=== PATIENT | female | born 1965 | race Caucasian/White ===

== ENCOUNTER → 2016-06-14 | Outpatient (CLI) | payer OTHER ==
[~2016-06-14] MED LIST: ASPI325T4 PO; ATOR-24 PO; CRAN1CAP15 PO; DIGO0.1267 PO; FISHOIL PO; METF1000 PO; METO-596 PO; MULTTAB58 PO; OXYC-57 PO; TRAMTAB5 PO
[2016-06-14 12:36] LABS: ALT/SGPT 72 U/L (12-78); AST/SGOT 34 U/L (15-37); BLOOD UREA NITROGEN 16 mg/dl (7-18); BUN/CREATININE RATIO 19.5 (10-20); CALCIUM 8.8 mg/dl (8.5-10.1); CARBON DIOXIDE 25 mmol/L (21-32); CHLORIDE 107 mmol/L (98-107); CREATININE 0.84 mg/dl (0.60-1.20); GLUCOSE 125 mg/dl (70-99); POTASSIUM 3.9 mmol/L (3.5-5.1); SODIUM 142 mmol/L (136-145)
[2016-06-14 12:38] LABS: ALB/GLOB RATIO 1.2 (0.9-2); ALKALINE PHOSPHATASE 79 U/L (45-117); CHOLESTEROL 152 mg/dl (0-200); CHOLESTEROL/HDL RATIO 4.2; HDL CHOLESTEROL 36 mg/dl; LDL CHOLESTEROL CALCULATED 72 mg/dl; TRIGLYCERIDES 222 mg/dl (0-150); VERY LOW DENSITY LIPOPROT CALC 44 mg/dl
[2016-06-14 12:42] LABS: ESTIMATED AVERAGE GLUCOSE 146 mg/dl; HA1C FLAG Normal (Normal)
== END | disposition home or self-care (01) ==
LOC: C.LABPVFM 08:33
PROVIDERS: ATTEND Family Medicine
DX: E78.5 Hyperlipidemia, unspecified (principal); E11.9 Type 2 diabetes mellitus without complications; I10 Essential (primary) hypertension; R74.8 Abnormal levels of other serum enzymes; I25.10 Atherosclerotic heart disease of native coronary artery without angina pectoris

== ENCOUNTER → 2016-09-10 | Outpatient (CLI) | payer OTHER | END | disposition home or self-care (01) | LOC: C.LABPVFM 11:47 | PROVIDERS: ATTEND Nurse Practitioner | DX: N39.0 Urinary tract infection, site not specified (principal) ==

== ENCOUNTER → 2016-12-17 | Outpatient (CLI) | payer OTHER ==
[2016-12-17 12:56] LABS: ESTIMATED AVERAGE GLUCOSE 140 mg/dl; HA1C FLAG Normal (Normal)
[2016-12-17 13:10] LABS: ALT/SGPT 93 U/L (12-78); AST/SGOT 46 U/L (15-37); BLOOD UREA NITROGEN 20 mg/dl (7-18); BUN/CREATININE RATIO 22.4 (10-20); CALCIUM 9.3 mg/dl (8.5-10.1); CARBON DIOXIDE 26 mmol/L (21-32); CHLORIDE 107 mmol/L (98-107); CREATININE 0.87 mg/dl (0.60-1.20); GLUCOSE 95 mg/dl (70-99); SODIUM 141 mmol/L (136-145)
[2016-12-17 13:13] LABS: ALB/GLOB RATIO 1.1 (0.9-2); ALKALINE PHOSPHATASE 80 U/L (45-117); CHOLESTEROL 143 mg/dl (0-200); CHOLESTEROL/HDL RATIO 3.7; HDL CHOLESTEROL 39 mg/dl; LDL CHOLESTEROL CALCULATED 78 mg/dl; TRIGLYCERIDES 132 mg/dl (0-150); VERY LOW DENSITY LIPOPROT CALC 26 mg/dl
[2016-12-17 13:23] LABS: RATIO 81.7 mcg/mg (0-30.0)
== END | disposition home or self-care (01) ==
LOC: C.LABPVFM 07:32
PROVIDERS: ATTEND Family Medicine
DX: I63.9 Cerebral infarction, unspecified (principal); E11.9 Type 2 diabetes mellitus without complications; R74.8 Abnormal levels of other serum enzymes; E78.5 Hyperlipidemia, unspecified; I10 Essential (primary) hypertension; I25.10 Atherosclerotic heart disease of native coronary artery without angina pectoris

== ENCOUNTER → 2017-01-10 | Outpatient (CLI) | payer OTHER ==
--- NOTE | 2017-01-10 09:06 | DIAGNOSTIC IMAGING REPORT ---
ABDOMINAL ULTRASOUND COMPLETE HISTORY: ELEVATED LIVER ENZYMES. COMPARISON: Abdominal ultrasound 01/12/2014. FINDINGS: Pancreas: The pancreatic tail is obscured by overlying bowel gas. The remaining portions of the pancreas are within normal limits. Liver: The liver is echogenic consistent with fatty change. Gallbladder: The gallbladder is surgically absent. CBD: 5 mm. Kidneys: The right kidney measures 11.7 cm and the left kidney measures 10.5 cm. There is moderate left hydroureteronephrosis. The dilated ureter measures up to 9 mm in diameter. The mid to distal left ureter was obscured by overlying bowel gas. Normal bladder. Only the right ureteral jet was identified. Spleen: Normal in size. Aorta: Normal in caliber. IVC: Patent. IMPRESSION: 1. Moderate left hydroureteronephrosis. The left ureteral jet was not identified. The site of obstruction is not identified due to overlying bowel gas. However, this favors an obstructing stone. CT can be performed for further evaluation. 2. Normal right kidney. 3. Hepatic steatosis. 4. Cholecystectomy. Electronically signed by: Perez Garcia M.D. 01/10/2017 9:05 AM Dictated Date/Time: 01/10/2017 9:01 AM
== END | disposition home or self-care (01) ==
LOC: C.ULTR 08:11
PROVIDERS: ATTEND Family Medicine
DX: R74.8 Abnormal levels of other serum enzymes (principal); N13.30 Unspecified hydronephrosis

== ENCOUNTER → 2017-02-07 | Outpatient (CLI) | payer OTHER | END | disposition home or self-care (01) | LOC: C.MAMM 08:15 | PROVIDERS: ATTEND Family Medicine | DX: Z13.820 Encounter for screening for osteoporosis (principal); M85.88 Other specified disorders of bone density and structure, other site; M85.851 Other specified disorders of bone density and structure, right thigh; M85.852 Other specified disorders of bone density and structure, left thigh ==

== ENCOUNTER → 2017-04-18 | Outpatient (CLI) | payer OTHER ==
--- NOTE | 2017-04-18 14:35 | MAMMOGRAPHY REPORT ---
BILATERAL DIGITAL SCREENING MAMMOGRAM TOMOSYNTHESIS WITH CAD: 04/18/2017 CLINICAL HISTORY: Routine screening. TECHNIQUE: Breast tomosynthesis in addition to standard 2D mammography was performed. Current study was also evaluated with a Computer Aided Detection (CAD) system. COMPARISON: Comparison is made to exams dated: 04/05/2016 mammogram, 03/29/2015 mammogram, 4 mammogram, 03/03/2013 mammogram, 01/10/2012 mammogram, and 11/02/2010 mammogram - [facility]. BREAST COMPOSITION: The tissue of both breasts is heterogeneously dense, which may obscure small mas ses. FINDINGS: No suspicious masses, calcifications, or areas of architectural distortion are noted in ei ther breast. There has been no significant interval change compared to prior exams. Scattered bilate ral benign-appearing calcifications are not significantly changed. IMPRESSION: ACR BI-RADS CATEGORY 2: BENIGN There is no mammographic evidence of malignancy. A 1 year screening mammogram is recommended. The pa tient will receive written notification of the results. Approximately 10% of breast cancers are not detected with mammography. A negative mammographic report should not delay biopsy if a clinically suggestive mass is present. Tori Noble M.D. /:04/18/2017 14:20:20 [employer]: David TOVAR(Radha)(M), [facility] letter sent: Normal 1/2 BI-RADS Code: ACR BI-RADS Category 2: Benign
== END | disposition home or self-care (01) ==
LOC: C.MAMM 08:30
PROVIDERS: ATTEND Family Medicine
DX: Z12.31 Encounter for screening mammogram for malignant neoplasm of breast (principal); R74.8 Abnormal levels of other serum enzymes

== ENCOUNTER → 2017-06-24 | Outpatient (CLI) | payer OTHER ==
[2017-06-24 13:11] LABS: HEMOGLOBIN A1C 6.2 % (4.5-5.6)
[2017-06-24 13:32] LABS: ALBUMIN 3.9 gm/dl (3.4-5.0); ALT/SGPT 30 U/L (12-78); BLOOD UREA NITROGEN 22 mg/dl (7-18); CALCIUM 8.9 mg/dl (8.5-10.1); CARBON DIOXIDE 27 mmol/L (21-32); CREATININE 0.82 mg/dl (0.60-1.20); GLUCOSE 110 mg/dl (70-99); POTASSIUM 3.6 mmol/L (3.5-5.1); SODIUM 141 mmol/L (136-145)
[2017-06-24 13:35] LABS: ALKALINE PHOSPHATASE 81 U/L (45-117); AST/SGOT 15 U/L (15-37); TOTAL PROTEIN 7.5 gm/dl (6.4-8.2)
== END | disposition home or self-care (01) ==
LOC: C.LABPVFM 08:06
PROVIDERS: ATTEND Family Medicine
DX: E11.9 Type 2 diabetes mellitus without complications (principal); E78.5 Hyperlipidemia, unspecified; I10 Essential (primary) hypertension; R74.8 Abnormal levels of other serum enzymes

== ENCOUNTER → 2017-12-18 | Outpatient (CLI) | payer OTHER ==
[2017-12-18 13:54] LABS: HEMOGLOBIN A1C 6.5 % (4.5-5.6)
[2017-12-18 14:10] LABS: ALKALINE PHOSPHATASE 79 U/L (45-117); ALT/SGPT 52 U/L (12-78); AST/SGOT 28 U/L (15-37); BLOOD UREA NITROGEN 17 mg/dl (7-18); CALCIUM 8.8 mg/dl (8.5-10.1); CARBON DIOXIDE 26 mmol/L (21-32); CHOLESTEROL 180 mg/dl (0-200); GLUCOSE 115 mg/dl (70-99); LDL CHOLESTEROL CALCULATED 89 mg/dl; POTASSIUM 3.9 mmol/L (3.5-5.1); SODIUM 139 mmol/L (136-145); TOTAL PROTEIN 7.3 gm/dl (6.4-8.2)
== END | disposition home or self-care (01) ==
LOC: C.LABPVFM 08:01
PROVIDERS: ATTEND Family Medicine
DX: E11.9 Type 2 diabetes mellitus without complications (principal); E78.00 Pure hypercholesterolemia, unspecified; I10 Essential (primary) hypertension; R74.8 Abnormal levels of other serum enzymes; I25.10 Atherosclerotic heart disease of native coronary artery without angina pectoris